=== PATIENT | female | born 1990 | race Two or more races ===

== ENCOUNTER 2018-06-08 21:57 | Emergency (ER) | payer OTHER ==
[~2018-06-08] VITALS: Ht 165.1 cm; Wt 68.0 kg
[~2018-06-08 21:57] MED LIST: NKM
[2018-06-08 22:25] VITALS: BP 130/90
[2018-06-09] VITALS: BP 119/67
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
[2018-06-09 00:15] VITALS: BP 119/67
== END 2018-06-09 00:15 | disposition home or self-care (01) ==
LOC: EDBD 21:57 → EMR 22:45
DX: H10.213 Acute toxic conjunctivitis, bilateral (principal); F19.10 Other psychoactive substance abuse, uncomplicated
CPT/HCPCS: 99282